=== PATIENT | female | born 1965 | race Hispanic/Latino ===

== ENCOUNTER 2017-04-05 22:10 | Inpatient (IN) | payer BC ==
[~2017-04-05] VITALS: Ht 152.4 cm; Wt 64.4 kg
[~2017-04-05 22:10] MED LIST: ADVIL,NUPRIN,M200 MG PO; AMBIEN10 MG PO; FIORICET 50-301 EACH PO; QNASL8.7 GM BOTH NARES; TYLENOL EXTRA500 MG PO; ZESTRIL10 MG PO; ZYRTEC10 M3 PO
[2017-04-06 11:26] VITALS: BP 144/79
[2017-04-06 12:06] VITALS: BP 144/79
[2017-04-06 21:00] VITALS: BP 116/56
[2017-04-06 23:25] VITALS: BP 108/53
[2017-04-07 04:33] VITALS: BP 99/54
[2017-04-07 07:46] VITALS: BP 88/55
[2017-04-07 07:54] VITALS: BP 88/50
[2017-04-07 11:30] VITALS: BP 111/57
[2017-04-07 16:07] VITALS: BP 119/59
[2017-04-07 20:47] VITALS: BP 109/55
[2017-04-08 00:51] VITALS: BP 120/58
[2017-04-08 08:14] VITALS: BP 129/63
[2017-04-08] MEDS ORDERED: OXYCODONE-APAP1 EACH PO (14:21)
[2017-04-08] MEDS ORDERED: GABAPENTIN300 MG PO (14:21)
[2017-04-08 15:42] VITALS: BP 127/63
[2017-04-09 00:15] VITALS: BP 122/61
[2017-04-09] MEDS ORDERED: FLEXERIL10 MG PO (07:46)
[2017-04-09] MEDS ORDERED: ENDOCET 5-3251 EACH PO (07:46)
[2017-04-09 07:51] VITALS: BP 123/79
== END 2017-04-09 11:37 | disposition home or self-care (01) | DRG 460 ==
LOC: ENRESERV 22:10 → 2SOUTH 04-06 09:09 → ENRESERV 04-06 16:43 → 3EAST 04-06 20:57
PROC: 0SG30AJ Fusion of Lumbosacral Joint with Interbody Fusion Device, Posterior Approach, Anterior Column, Open Approach (ICD-10-PCS; principal; 2017-04-06)
DX: M43.17 Spondylolisthesis, lumbosacral region (principal); M54.17 Radiculopathy, lumbosacral region; I10 Essential (primary) hypertension; M50.80 Other cervical disc disorders, unspecified cervical region; M54.16 Radiculopathy, lumbar region; M62.838 Other muscle spasm
CPT/HCPCS: 72100; 76000; 86900; 86901; J0131; J0690; J1100; J1170; J1580; J1885; J2250; J2405; J2704; J2765; J3010; J3370; J3480; J7030; Q0175; S0020